=== PATIENT | male | born 1945 | race Caucasian/White ===

== ENCOUNTER 2016-10-18 15:23 | Emergency (ER) | payer OTHER ==
[2016-10-18 15:28] VITALS: BMI 28.9
[2016-10-18] MEDS ORDERED: ONDANSETRON 4 MG/2 ML VIAL IVPUSH ONE (20:24)
[2016-10-18] MEDS ORDERED: SODIUM CHLORIDE 1,000 ML IV STA (20:24)
[2016-10-18] MEDS ORDERED: morphine CARPU-JECT 4 MG/1 ML DISP.SYRIN IVPUSH ONE (20:25)
--- NOTE | 2016-10-18 20:43 | PDOC ---
History of Present Illness - General Chief Complaint: Pain Stated Complaint: ABD PAIN/NEAR SYNCOPE Time Seen by Provider: 10/18/16 19:57 History Source: Patient Exam Limitations: No Limitations - History of Present Illness Travel History: No Initial Comments: 10/18/16 20:38 71yo Male patient w/ PmHx: HTN, HLD, Cataracts presents to ED c/o abdominal pain that began at 230pm with blurred vision. Patient states blurred vision has resolved and abdominal pain has decreased in intensity but still remains 5/10 down from 1010. Denies n/v/d, fever, back pain, change or decrease in appetite , CP, diff breathing, hematuria, rectal bleeding or any other complaints at this time. Last BM: 2 hours ago and normal. Denies any other complaints. Timing/Duration: reports: constant, changing over time Quality: reports: moderate Abdominal Pain Onset Location: reports: LLQ, periumbilical Pain Radiation: reports: no radiation Activities at Onset: denies: none, exertion, emotional upset, rest, sleep, no specific activity, eating, working, sexual intercourse, other Treatment Prior to Arrive: worse with: analgesics, antacids, cold pack, heat, laxative, enema, other Aggravating Factors: worse with: None, Defecation, Eating, Emotional upset, Exertion, [place], Movement, Voiding, Change in position Alleviating Factors: worse with: None, Belching, Shallow Breathing, Defecation, Eating, Holding Breath, Passing Gas, Change in Position, Rest, Voiding, Vomiting Past History - Travel Traveled outside of the country in the last 30 days: No Close contact w/someone who was outside of country & ill: No - Past Medical History Allergies/Adverse Reactions: Allergies Allergy/AdvReac Type Severity Reaction Status Date / Time Sulfa (Sulfonamide Allergy Intermediate Rash Verified 10/18/16 15:26 Antibiotics) [Sulfa(Sulfonamide Antibiotics)] ciprofloxacin [From Cipro] Allergy ITCHING Verified 10/18/16 15:26 RASH ciprofloxacin HCl Allergy ITCHING Verified 10/18/16 15:26 [From Cipro] RASH Home Medications: Ambulatory Orders Aspirin Coated [Ecotrin -] 81 mg PO DAILY 12/05/12 Metoprolol Succinate [Toprol XL -] 50 mg PO HS 12/05/12 Atorvastatin Ca [Lipitor] 80 mg PO HS 01/03/14 Amlodipine Besylate 7.5 mg PO DAILY 10/18/16 Anemia: No Asthma: No Cancer: No Cardiac Disorders: Yes (4 STENTS) CVA: No COPD: No CHF: No Dementia: No Diabetes: No GI Disorders: No Disorders: Yes (BPH) HTN: Yes Hypercholesterolemia: Yes Liver Disease: No Seizures: No Thyroid Disease: No - Surgical History Abdominal Surgery: Yes (HERNIA.) Appendectomy: Yes (AT 11 YRS OLD) Cardiac Surgery: Yes (STENTS X4) Cholecystectomy: No Lung Surgery: No Neurologic Surgery: No Orthopedic Surgery: Yes (RT FIBULA FX) - Immunization History Immunization Up to Date: Yes - Psycho/Social/Smoking Cessation Hx Anxiety: No Suicidal Ideation: No Smoking Status: No Smoking History: Never smoked Have you smoked in the past 12 months: No Number of Cigarettes Smoked Daily: 0 Information on smoking cessation initiated: No Hx Alcohol Use: No Drug/Substance Use Hx: No Substance Use Type: None Hx Substance Use Treatment: No Abd/GI Specific PMHX - Complaint Specific PMHX Colitis: No Diverticulitis: No Gall Bladder Disease: No GERD: No Hepatitis: No Irritable Bowel Synd (IBS): No Pancreatitis: No GI Ulcer Disease: No Review of Systems - Review of Systems Able to Perform ROS?: Yes Is the patient limited Jamaican proficient: No Constitutional: No: Chills, Fever HEENTM: Yes: Blurred Vision ABD/GI: Yes: Abdominal cramping. No: Abdominal Distended, Blood Streaked Bowels , Constipated, Diarrhea, Nausea, Poor Appetite, Poor Fluid Intake, Rectal Bleeding, Vomiting, Tarry Stools : No: Burning, Dysuria, Flank Pain, Hematuria, Testicular Pain Musculoskeletal: No: Back Pain Integumentary: No: Bruising, Erythema, Pruritus, Rash, Sweating Neurological: No: Headache, Seizure, Tingling, Tremors, Unsteady Gait, Ataxia, Dizziness Psychiatric: No: Depression All Other Systems: Reviewed and Negative *Physical Exam - Vital Signs Last Vital Signs Temp Pulse Resp BP Pulse Ox 98.3 F 76 18 156/71 100 10/18/16 15:27 10/18/16 15:27 10/18/16 15:27 10/18/16 15:27 10/18/16 15:27 - Physical Exam General Appearance: Yes: Nourished, Appropriately Dressed. No: Apparent Distress, Mild Distress, Moderate Distress, Severe Distress Respiratory/Chest: positive: Lungs Clear, Normal Breath Sounds. negative: Chest Tender, Respiratory Distress, Accessory Muscle Use, Labored Respiration, Rapid RR, Stridor, Wheezing Cardiovascular: positive: Regular Rhythm, Regular Rate Gastrointestinal/Abdominal: positive: Normal Bowel Sounds, Tender, Soft, Distended, Tenderness (LLQ). negative: Flat, Increased Bowel Sounds, Decreased BS, Guarding, Rebound Musculoskeletal: positive: Normal Inspection. negative: CVA Tenderness, Decreased Range of Motion, Vertebral Tenderness Extremity: positive: Normal Capillary Refill, Normal Inspection, Normal Range of Motion. negative: Pedal Edema, Swelling, Calf Tenderness, Erythema, Inflammation Integumentary: positive: Normal Color, Dry, Warm Neurologic: positive: bean viner II-XII NML intact, Fully Oriented, Alert, Normal Mood/ Affect, Normal Response, Motor Strength 07/02 ED Treatment Course - LABORATORY CBC & Chemistry Diagram: 10/18/16 21:00 10/18/16 21:00 - RADIOLOGY Radiology Studies Ordered: Category Date Time Status ABDOMEN & PELVIS CT WITH CONTR [CT] Stat CT Scan 10/18/16 20:25 Ordered *DC/Admit/Observation/Transfer Diagnosis at time of Disposition: Gastroenteritis - Discharge Dispostion Disposition: HOME Condition at time of disposition: Improved Admit: No - Patient Instructions Printed Discharge Instructions: DI for Viral Gastroenteritis -- Adult Additional Instructions: FOLLOW UP WITH YOUR GI SPECIALIST THIS WEEK FOR FURTHER EVALUATION. RETURN IF SYMPTOMS WORSEN OR ANY CONCERNS FOR FURTHER EVALUATION. Print Language: BENINESE
[2016-10-18] MEDS ORDERED: ONDANSETRON 4 MG/2 ML VIAL ONE (20:57)
[2016-10-18] MEDS ORDERED: morphine CARPU-JECT 2 MG/1 ML DISP.SYRIN ONE (20:57)
[2016-10-18 21:12] LABS: BASOPHIL 0.4 % (0-2.0); EOSINOPHIL 0.7 % (0-4.5); MCH 31.5 pg (25.7-33.7); MCHC 33.9 g/dl (32.0-35.9); MEAN PLT VOLUME 7.7 fl (7.5-11.1); NEUTROPHILS 68.3 % (42.8-82.8); PLATELET COUNT 233 K/MM3 (134-434); RDW 13.2 % (11.9-15.9); WHITE BLOOD COUNT 6.3 K/mm3 (4.0-10.0)
[2016-10-18 21:20] LABS: URINE APPEARANCE SLCLOUDY; URINE BILIRUBIN NEGATIVE (NEGATIVE); URINE BLOOD NEGATIVE (NEGATIVE); URINE COLOR YELLOW; URINE GLUCOSE (UA) NEGATIVE (NEGATIVE); URINE KETONE 1+ (NEGATIVE); URINE LEUK ESTERASE NEGATIVE (NEGATIVE); URINE NITRITE NEGATIVE (NEGATIVE); URINE PROTEIN NEGATIVE (NEGATIVE); URINE UROBILINOGEN NEGATIVE mg/dL (0.2-1.0)
[2016-10-18 21:36] LABS: AMYLASE 65 U/L (25-115); ANION GAP 6 (8-16); BILIRUBIN,TOTAL 0.5 mg/dL (0.2-1.0); CALCIUM 9.1 mg/dL (8.5-10.1); CO2 30 mmol/L (21-32); CREATININE 0.8 mg/dL (0.7-1.3); GLUCOSE,RANDOM 84 mg/dL (74-106); SGOT/AST 20 U/L (15-37); SGPT/ALT 35 U/L (12-78); TOT PROT 7.4 g/dl (6.4-8.2)
[2016-10-18 21:37] LABS: ALK PHOS 66 U/L (45-117)
[2016-10-19 00:33] VITALS: BP 132/70; PULSE 74; TEMP 98
== END 2016-10-19 00:32 | disposition home or self-care (01) ==
LOC: JER 15:23
PROC: 3E033NZ Introduction of Analgesics, Hypnotics, Sedatives into Peripheral Vein, Percutaneous Approach (ICD-10-PCS; principal; 2016-10-18)
PROC: 3E033GC Introduction of Other Therapeutic Substance into Peripheral Vein, Percutaneous Approach (ICD-10-PCS; 2016-10-18)
DX: K52.9 Noninfective gastroenteritis and colitis, unspecified (principal); I25.10 Atherosclerotic heart disease of native coronary artery without angina pectoris; I10 Essential (primary) hypertension; Z95.5 Presence of coronary angioplasty implant and graft; E78.00 Pure hypercholesterolemia, unspecified; N40.0 Benign prostatic hyperplasia without lower urinary tract symptoms
CPT/HCPCS: 36415; 74177-TC; 80053; 81003; 82150; 83690; 85025; 96374; 96375; 99283-25

== ENCOUNTER 2016-10-24 11:31 | Emergency (ER) | payer OTHER ==
[2016-10-24 11:39] VITALS: TEMP 98.3; BMI 28.2
--- NOTE | 2016-10-24 11:59 | PDOC ---
History of Present Illness <Tucker Roper - Last Filed: 10/24/16 16:44> - General History Source: Patient Exam Limitations: No Limitations - History of Present Illness Initial Comments: 10/24/16 12:20 The patient is a 71 year old male, with a significant past medical history of hypertension, hyperlipidemia and cataracts who presents to the emergency department complaining of intermittent diffuse abdominal pain, headache and lightheadedness beginning this morning. The patient describes the abdominal pain as "subtle" and made worse with movement. He reports associated symptoms of diaphoresis. The patient states he was recently admitted to the ED on Tuesday , October 18, 2016 for stomach pain and reports that the ct scan detected a hiatal hernia. The patient states he followed up with his PCP on , October 21, 2016 and was prescribed Magnesium Citrate for constipation. The patient reports normal bowel movements. He denies any recent nausea, vomit, diarrhea or constipation. He denies any recent fever or chills. He denies any recent chest pain or shortness of breath. Allergies: Sulfa, Ciprofloxacin, Ciprofloxacin HCL Past surgical history: Appendectomy, Stents x4, Hernia, RT Fibula Fx Primary Care Physician: Dr. Glen Hill <Ralph Perez - Last Filed: 10/24/16 18:55> - General Chief Complaint: Pain Stated Complaint: ABD PAIN, HEADACHES Past History - Past Medical History Anemia: No Asthma: No Cancer: No Cardiac Disorders: Yes (4 STENTS) CVA: No COPD: No CHF: No Dementia: No Diabetes: No GI Disorders: No Disorders: Yes (BPH) HTN: Yes Hypercholesterolemia: Yes Liver Disease: No Seizures: No Thyroid Disease: No - Surgical History Abdominal Surgery: Yes (HERNIA.) Appendectomy: Yes (AT 11 YRS OLD) Cardiac Surgery: Yes (STENTS X4) Cholecystectomy: No Lung Surgery: No Neurologic Surgery: No Orthopedic Surgery: Yes (RT FIBULA FX) - Immunization History Immunization Up to Date: Yes - Psycho/Social/Smoking Cessation Hx Anxiety: No Suicidal Ideation: No Smoking Status: No Smoking History: Never smoked Have you smoked in the past 12 months: No Number of Cigarettes Smoked Daily: 0 Hx Alcohol Use: Yes (SOCIAL) Drug/Substance Use Hx: No Substance Use Type: None Hx Substance Use Treatment: No <Tucker Roper - Last Filed: 10/24/16 16:44> <Ralph Perez - Last Filed: 10/24/16 18:55> - Past Medical History Allergies/Adverse Reactions: Allergies Allergy/AdvReac Type Severity Reaction Status Date / Time Sulfa (Sulfonamide Allergy Intermediate Rash Verified 10/24/16 11:39 Antibiotics) [Sulfa(Sulfonamide Antibiotics)] ciprofloxacin [From Cipro] Allergy ITCHING Verified 10/24/16 11:39 RASH ciprofloxacin HCl Allergy ITCHING Verified 10/24/16 11:39 [From Cipro] RASH Home Medications: Ambulatory Orders Aspirin Coated [Ecotrin -] 81 mg PO DAILY 12/05/12 Metoprolol Succinate [Toprol XL -] 50 mg PO HS 12/05/12 Atorvastatin Ca [Lipitor] 40 mg PO HS 01/03/14 Amlodipine Besylate 7.5 mg PO DAILY 10/18/16 Review of Systems - Review of Systems Comments:: 10/24/16 12:29 GENERAL/CONSTITUTIONAL: No fever or chills. No weakness. HEAD, EYES, EARS, NOSE AND THROAT: No change in vision. No ear pain or discharge. No sore throat. CARDIOVASCULAR: No chest pain or shortness of breath. RESPIRATORY: No cough, wheezing, or hemoptysis. GASTROINTESTINAL: +Diffuse abdominal pain. No nausea, vomiting, diarrhea or constipation. GENITOURINARY: No dysuria, frequency, or change in urination. MUSCULOSKELETAL: No joint or muscle swelling or pain. No neck or back pain. SKIN: No rash NEUROLOGIC: +Headache. +Lightheadedness. No loss of consciousness, or change in strength/sensation. ENDOCRINE: No increased thirst. No abnormal weight change. HEMATOLOGIC/LYMPHATIC: No anemia, easy bleeding, or history of blood clots. ALLERGIC/IMMUNOLOGIC: No hives or skin allergy. <Ralph Perez - Last Filed: 10/24/16 18:55> *Physical Exam - Vital Signs Last Vital Signs Temp Pulse Resp BP Pulse Ox 98.3 F 61 20 149/84 98 10/24/16 11:36 10/24/16 11:36 10/24/16 11:36 10/24/16 11:36 10/24/16 11:36 <Tucker Roper - Last Filed: 10/24/16 16:44> - Vital Signs Last Vital Signs Temp Pulse Resp BP Pulse Ox 98.3 F 61 20 149/84 98 10/24/16 11:36 10/24/16 11:36 10/24/16 11:36 10/24/16 11:36 10/24/16 11:36 - Physical Exam Comments: 10/24/16 12:32 GENERAL: Awake, alert, and fully oriented, in no acute distress HEAD: No signs of trauma EYES: PERRLA, EOMI, sclera anicteric, conjunctiva clear ENT: Auricles normal inspection, hearing grossly normal, nares patent, oropharynx clear without exudates. Moist mucosa NECK: Normal ROM, supple, no lymphadenopathy, JVD, or masses LUNGS: Breath sounds equal, clear to auscultation bilaterally. No wheezes, and no crackles HEART: Regular rate and rhythm, normal S1 and S2, no murmurs, rubs or gallops ABDOMEN: Soft, nontender, normoactive bowel sounds. No guarding, no rebound. No masses EXTREMITIES: Normal range of motion, no edema. No clubbing or cyanosis. No cords, erythema, or tenderness NEUROLOGICAL: Cranial nerves II through XII grossly intact. Normal speech, normal gait SKIN: Warm, Dry, normal turgor, no rashes or lesions noted. <Ralph Perez - Last Filed: 10/24/16 18:55> Heart Score/ECG Review #1 10/24/16 18:53 Sinus bradycardia Otherwise normal ECG Vent rate 58 bpm NE interval 196 ms QRS duration 114 ms QT/QTc 426/418 ms P-R-T axes 35 -12 2 <Ralph Perez - Last Filed: 10/24/16 18:55> ED Treatment Course - LABORATORY CBC & Chemistry Diagram: 10/24/16 12:28 10/24/16 12:28 <Tucker Roper - Last Filed: 10/24/16 16:44> - LABORATORY CBC & Chemistry Diagram: 10/24/16 12:28 10/24/16 12:28 - RADIOLOGY Radiograph Interpretation: 10/24/16 13:31 EXAM#: TYPE/EXAM: RESULT: [id number] RAD/ABDOMEN FLAT UPRIGHT Abdomen: Pain. Imaging reveals degenerative changes, clear lung bases, prominent heart and retained stool. There is no sign of an obstructive process. Pneumatosis is not seen. There is no sign of organomegaly or calcifications of significance. There is urine filled bladder. There are some inguinal vascular calcifications. There are prominent soft tissues. Impression: No acute pathology. If symptoms persist, further imaging may be of help. Please note a CT scan performed on 10/18/2016 showed diverticulosis but no sign of diverticulitis. Reported By: Mahendra Biswas MD 10/24/16 1327 10/24/16 13:35 EXAM#: TYPE/EXAM: RESULT: [id number] RAD/CHEST PA LAT Chest: Abdominal pain Imaging reveals scoliosis with degenerative changes and wedging, normal heart, sclerotic knob and normal aaron. The lungs are clear. The angles are sharp and the soft tissues are intact. An acute process is not seen. Since the prior study of 02/23/2017, the basilar atelectatic changes have resolved. Impression : No acute pathology. Scoliosis. Improvement since prior study. Reported By: Mahendra Biswas MD 10/24/16 1325 <Ralph Perez - Last Filed: 10/24/16 18:55> *DC/Admit/Observation/Transfer - Discharge Dispostion Admit: No - Attestations Physician Attestion: 10/24/16 11:59 I, Dr. Tucker Roper, attest that this document has been prepared under my direction and personally reviewed by me in its entirety. I further attest, that it accurately reflects all work, treatment, procedures and medical decision -making performed by me. <Tucker Roper - Last Filed: 10/24/16 16:44> - Attestations Scribe Attestion: 10/24/16 12:33 Documentation prepared by Ralph Perez, acting as medical assistant dermatology for Tucker Roper DO. <Ralph Perez - Last Filed: 10/24/16 18:55> Diagnosis at time of Disposition: Abdominal pain Qualifiers: Abdominal location: generalized Qualified Code(s): R10.84 - Generalized abdominal pain - Discharge Dispostion Disposition: HOME Condition at time of disposition: Good - Referrals Referrals: Glen Hill MD [Primary Care Provider] - - Patient Instructions Printed Discharge Instructions: DI for Abdominal Pain-Adult Additional Instructions: Mr Montgomery- SOrry this is so bothersome. Try some GasX (simethicone). Return to us if worse or new symptoms, follow up with your doctor later this week. Best- Dr. Tucker Roper
[2016-10-24] MEDS ORDERED: SODIUM CHLORIDE 1,000 ML IV STA (12:07)
[2016-10-24 12:33] LABS: BASOPHIL 0.6 % (0-2.0); EOSINOPHIL 0.8 % (0-4.5); MCH 31.3 pg (25.7-33.7); MEAN PLT VOLUME 7.4 fl (7.5-11.1); NEUTROPHILS 69.6 % (42.8-82.8); PLATELET COUNT 214 K/MM3 (134-434); RDW 13.2 % (11.9-15.9)
[2016-10-24 12:59] LABS: ALBUMIN 2.5 g/dl (3.4-5.0); ANION GAP 14 (8-16); BILIRUBIN,TOTAL 0.8 mg/dL (0.2-1.0); CALCIUM 7.2 mg/dL (8.5-10.1); CO2 25 mmol/L (21-32); SGOT/AST 16 U/L (15-37); SGPT/ALT 28 U/L (12-78); TOT PROT 7.5 g/dl (6.4-8.2)
[2016-10-24 13:01] LABS: ALK PHOS 73 U/L (45-117); CPK 123 IU/L (39-308); TROPONIN I < 0.02 ng/ml (0.00-0.05)
[2016-10-24 13:23] LABS: GLUCOSE,RANDOM 90 mg/dL (74-106)
[2016-10-24 15:46] LABS: INR 1.05 (0.82-1.09); PROTHROMBIN TIME (PATIENT) 11.6 SEC (9.98-11.88)
[2016-10-24 16:10] VITALS: BP 159/73; PULSE 59
--- NOTE | 2016-10-24 19:31 | EKG ---
Test Reason : Blood Pressure : / mmHG Vent. Rate : 058 BPM Atrial Rate : 058 BPM P-R Int : 196 ms QRS Dur : 114 ms QT Int : 426 ms P-R-T Axes : 035 -12 002 degrees QTc Int : 418 ms SINUS BRADYCARDIA NON-SPECIFIC INTRA-VENTRICULAR CONDUCTION DELAY WHEN COMPARED WITH ECG OF 03-JAN-2014 20:10, PREMATURE ATRIAL COMPLEXES ARE NO LONGER PRESENT Confirmed by AGGIE HONG, ANA LILIA ([id number]) on 10/24/2016 7:30:47 PM Referred By: Confirmed By:ANA LILIA MARCIAL MD
== END 2016-10-24 16:56 | disposition home or self-care (01) ==
LOC: JER 11:31
PROC: 3E0337Z Introduction of Electrolytic and Water Balance Substance into Peripheral Vein, Percutaneous Approach (ICD-10-PCS; principal; 2016-10-24)
DX: R10.84 Generalized abdominal pain (principal); I10 Essential (primary) hypertension; E78.00 Pure hypercholesterolemia, unspecified; K44.9 Diaphragmatic hernia without obstruction or gangrene
CPT/HCPCS: 36415; 71020-TC; 74020-TC; 80053; 83690; 84484; 85025; 85610; 93005; 93010; 96360; 99285-25

== ENCOUNTER 2017-03-10 13:16 | Emergency (ER) | payer OTHER ==
[2017-03-10 13:31] VITALS: BMI 29.5
[2017-03-10 19:49] LABS: URINE APPEARANCE TURBID; URINE BILIRUBIN NEGATIVE (NEGATIVE); URINE BLOOD 3+ (NEGATIVE); URINE GLUCOSE (UA) 1+ (NEGATIVE); URINE KETONE NEGATIVE (NEGATIVE); URINE LEUK ESTERASE NEGATIVE (NEGATIVE); URINE NITRITE POSITIVE (NEGATIVE); URINE UROBILINOGEN NEGATIVE mg/dL (0.2-1.0)
[2017-03-10 19:50] LABS: URINE PROTEIN 2+ (NEGATIVE)
[2017-03-10 19:51] LABS: URINE COLOR RED
[2017-03-10 19:54] VITALS: BP 137/70; PULSE 63; TEMP 98.2
--- NOTE | 2017-03-10 19:56 | PDOC ---
Attending Attestation - Resident Resident Name: Ed Astudillo - ED Attending Attestation I have performed the following: I have examined & evaluated the patient, The case was reviewed & discussed with the resident, I agree w/resident's findings & plan, Exceptions are as noted - Physicial Exam PE: 03/10/17 20:10 Physical Exam General Appearance: Yes: Appropriately Dressed. No: Apparent Distress, Intoxicated HEENT: positive: EOMI, DANAE, Normal ENT Inspection, Normal Voice, TMs Normal, Pharynx Normal. negative: Pale Conjunctivae, Photophobia, Scleral Icterus (R), Scleral Icterus (L) Neck: positive: Trachea midline, Normal Thyroid, Supple. negative: Tender, Rigid, Carotid bruit, Stridor, Lymphadenopathy (R), Lymphadenopathy (L), Thyromegaly Respiratory/Chest: positive: Lungs Clear, Normal Breath Sounds. negative: Chest Tender, Respiratory Distress, Accessory Muscle Use, Labored Respiration, RES, Crackles, Rales, Rhonchi, Stridor, Wheezing, Dullness Cardiovascular: positive: Regular Rhythm, Regular Rate, S1, S2. negative: Edema , JVD, Murmur, Bradycardia, Tachycardia Vascular Pulses: Dorsalis-Pedis (R): 2+, Doralis-Pedis (L): 2+ Gastrointestinal/Abdominal: positive: Normal Bowel Sounds, Flat, Soft. negative : Tender, Organomegaly, Pulsatile Mass, Increased Bowel Sounds, Decreased BS, Distended, Guarding, Rebound, Hernia, Hepatomegaly, Spleenomegaly Lymphatic: negative: Adenopathy, Tenderness Musculoskeletal: positive: Normal Inspection. negative: CVA Tenderness, Decreased Range of Motion Extremity: positive: Normal Capillary Refill, Normal Inspection, Normal Range of Motion, Pelvis Stable. negative: Tender, Pedal Edema, Swelling, Erythema Integumentary: positive: Normal Color, Dry, Warm. 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 negative: EOM Palsy, Facial Droop, Sensory Deficit - Medical Decision Making 03/10/17 20:06 Pt treated and released. <Eduardo Goodwin - Last Filed: 03/10/17 20:10> - HPI HPI: 03/10/17 20:01 The patient is a 72 year old male with a significant PMH of CAD s/p stents and prostate bleeds into urethra s/p 2 surgeries (2009, 2013) who presents to the emergency department with bloody discharge from penis beginning earlier this afternoon. The patient denies dysuria or change in urinary frequency. He also reports epigastric abdominal pain which he has been seeing his PCP for. Allergies: Sulfonamide antibiotics, Ciprofloxacin, Ciprofloxacin HCl Urologist: Dr. Roy <Jorge L Dalal - Last Filed: 03/10/17 20:16>
[2017-03-10] MEDS ORDERED: DOXYCYCLINE HYCLATE 100 MG CAPSULE PO ONE ×2 (19:59→20:08)
--- NOTE | 2017-03-10 20:00 | PDOC ---
History of Present Illness - General Chief Complaint: Rectal Bleed Stated Complaint: RECTAL BLEED Time Seen by Provider: 03/10/17 19:13 History Source: Patient Exam Limitations: No Limitations - History of Present Illness Initial Comments: 03/10/17 19:48 Patient is a 72M with history of prostate surgery to relieve bleeding in 2009 and 2013, HTN, CAD s/p 4 stents in 2008, here today complaining of bloody discharge to the penis since 1pm today. Patient denies pain with urination, lower abdominal pain and flank pain. He denies nausea, vomiting, fevers and chills. Denies chest pain, shortness of breath, weakness, and dizziness. Does not take any blood thinners. No history of bleeding disorders. ALL: Sulfas and cipro Past History - Past Medical History Allergies/Adverse Reactions: Allergies Allergy/AdvReac Type Severity Reaction Status Date / Time Sulfa (Sulfonamide Allergy Intermediate Rash Verified 03/10/17 13:31 Antibiotics) [Sulfa(Sulfonamide Antibiotics)] ciprofloxacin [From Cipro] Allergy ITCHING Verified 03/10/17 13:31 RASH ciprofloxacin HCl Allergy ITCHING Verified 03/10/17 13:31 [From Cipro] RASH Home Medications: Ambulatory Orders Aspirin Coated [Ecotrin -] 81 mg PO DAILY 12/05/12 Metoprolol Succinate [Toprol XL -] 50 mg PO HS 12/05/12 Atorvastatin Ca [Lipitor] 40 mg PO HS 01/03/14 Amlodipine Besylate 7.5 mg PO DAILY 10/18/16 Bromfenac Sodium [Prolensa] 3 ml OP DAILY 01/03/17 Difluprednate [Durezol] 5 ml OP DAILY 01/03/17 Doxycycline Hyclate 100 mg PO BID #20 tablet 03/10/17 Anemia: No Asthma: No Cancer: No Cardiac Disorders: Yes (4 STENTS) CVA: No COPD: No CHF: No DVT: No Dementia: No Diabetes: No GI Disorders: No Disorders: Yes (BPH) HTN: Yes Hypercholesterolemia: Yes Liver Disease: No Seizures: No Thyroid Disease: No - Surgical History Abdominal Surgery: Yes (HERNIA.) Appendectomy: Yes (AT 11 YRS OLD) Cardiac Surgery: Yes (STENTS X4) Cholecystectomy: No Lung Surgery: No Neurologic Surgery: No Orthopedic Surgery: Yes (RT FIBULA FX) - Immunization History Immunization Up to Date: Yes - Suicide/Smoking/Psychosocial Hx Smoking Status: No Smoking History: Never smoked Have you smoked in the past 12 months: No Number of Cigarettes Smoked Daily: 0 Information on smoking cessation initiated: No Hx Alcohol Use: No Drug/Substance Use Hx: No Substance Use Type: None Hx Substance Use Treatment: No Review of Systems - Review of Systems Comments:: 03/10/17 19:50 GENERAL/CONSTITUTIONAL: No fever or chills. No weakness. HEAD, EYES, EARS, NOSE AND THROAT: No change in vision. No sore throat. CARDIOVASCULAR: No chest pain or shortness of breath RESPIRATORY: No cough, wheezing, or hemoptysis. GASTROINTESTINAL: No nausea, vomiting, diarrhea or constipation. GENITOURINARY: No dysuria, frequency. Positive for blood in urine. MUSCULOSKELETAL: No joint or muscle swelling or pain. No neck or back pain. SKIN: No rash NEUROLOGIC: No headache, vertigo, loss of consciousness, or change in strength/ sensation. HEMATOLOGIC/LYMPHATIC: No anemia, easy bleeding, or history of blood clots. ALLERGIC/IMMUNOLOGIC: No hives or skin allergy. *Physical Exam - Vital Signs Last Vital Signs Temp Pulse Resp BP Pulse Ox 98.8 F 68 18 141/74 98 03/10/17 13:29 03/10/17 13:29 03/10/17 13:29 03/10/17 13:29 03/10/17 13:29 - Physical Exam Comments: 03/10/17 20:00 GENERAL: Awake, alert, and fully oriented, in no acute distress : Dried blood around the meatus, no active discharge, uncircumcised penis, nontender, normal testicular lie HEAD: No signs of trauma, normocephalic, atraumatic EYES: PERRLA, EOMI, sclera anicteric, conjunctiva clear ENT: Auricles normal inspection, hearing grossly normal, nares patent, oropharynx clear without exudates. Moist mucosa LUNGS: No distress, speaks full sentences, clear to auscultation bilaterally HEART: Regular rate and rhythm, normal S1 and S2, no murmurs, rubs or gallops, peripheral pulses normal and equal bilaterally. ABDOMEN: Soft, nontender, normoactive bowel sounds. No guarding, no rebound. No masses EXTREMITIES: Normal inspection, Normal range of motion, no edema. No clubbing or cyanosis. NEUROLOGICAL: Cranial nerves II through XII grossly intact. Normal speech, normal gait, no focal sensorimotor deficits SKIN: Warm, Dry, normal turgor, no rashes or lesions noted. Medical Decision Making - Medical Decision Making 03/10/17 20:01 72M with history of prostate surgery for bleeding from prostate in 2009, 2013, CAD s/p stenting in 2008, HLD, HTN here today with bleeding from penis. Vital signs normal and stable. Patient appears well. No active bleeding from the penis. Has urology follow up already in Dr Roy. Will do UA/UC and refer patient to his own urologist. UA is nitrite positive with 3+ blood. Will give doxycycline due to patient's allergies and discharge with outpatient prescription for 10 days. *DC/Admit/Observation/Transfer Diagnosis at time of Disposition: Hematuria, UTI (lower urinary tract infection) - Discharge Dispostion Disposition: HOME Condition at time of disposition: Good Admit: No - Referrals Referrals: Glen Hill MD [Primary Care Provider] - Ed Roy MD [Staff Physician] - - Patient Instructions Printed Discharge Instructions: DI for Hematuria, DI for Urinary Tract Infection (UTI) Additional Instructions: Please call Dr Roy tomorrow to schedule follow up. Please return if you have any new, worsening or concerning symptoms. You were prescribed an antibiotic today and it was sent to your pharmacy. Please pick it up from the pharmacy and complete the prescription. You were given your first dose in the ED , take your second dose starting tomorrow morning. - Post Discharge Activity
== END 2017-03-10 20:16 | disposition home or self-care (01) ==
LOC: JER 13:16
DX: N39.0 Urinary tract infection, site not specified (principal); R31.9 Hematuria, unspecified; I25.10 Atherosclerotic heart disease of native coronary artery without angina pectoris; I10 Essential (primary) hypertension; Z95.5 Presence of coronary angioplasty implant and graft; E78.5 Hyperlipidemia, unspecified; N40.0 Benign prostatic hyperplasia without lower urinary tract symptoms
CPT/HCPCS: 81003; 81015; 87086; 99281-25

== ENCOUNTER 2017-12-30 07:38 | Day surgery (SDC) | payer OTHER ==
[2017-12-29 09:18] VITALS: BMI 27.5
[~2017-12-30 07:38] MED LIST: ceFAZolin SODIUM 1 GM VIAL IVPB ONE
[2017-12-30] MEDS ORDERED: BUPIVACAINE HCL/PF 0.5% (5MG/ML) 10 ML VIAL ONE (09:24)
--- NOTE | 2017-12-30 09:38 | HP ---
History & Physical Update - History History: No Change - Physical Physical: No Change - Assessment Assessment: No Change - Plan Plan: No Change (Laparoscopic repair of ventral and umbilical hernia with mesh , possible open. Consent obtained. Procedure exlained with risks, benefits and complications.)
--- NOTE | 2017-12-30 09:53 | HP ---
Satellite [facility] - Chief Complaint Chief Complaint: Bulge on anterior abdominal wall, now for the last year is having pain, History Source: Patient Limitations to Obtaining History: No Limitations - Past Medical History Allergies/Adverse Reactions: Allergies Allergy/AdvReac Type Severity Reaction Status Date / Time Sulfa (Sulfonamide Allergy Intermediate Rash Verified 12/30/17 08:11 Antibiotics) [Sulfa(Sulfonamide Antibiotics)] ciprofloxacin [From Cipro] Allergy ITCHING Verified 12/30/17 08:11 RASH ciprofloxacin HCl Allergy ITCHING Verified 12/30/17 08:11 [From Cipro] RASH Gastrointestinal: Yes: Other (He has a large bulge in his epigastrium and around the umbilicus, which is partially reducible.. Ventral and umbilical herniae.) - Current Medications Current Medications: Home Medications Medication Instructions Recorded Aspirin Coated [Ecotrin -] 81 mg PO DAILY 12/05/12 Amlodipine Besylate 10 mg PO HS 10/18/16 Bromfenac Sodium [Prolensa] 3 ml OU DAILY 10/20/17 Finasteride [Proscar -] 5 mg PO HS 10/20/17 Omeprazole 40 mg PO PRN 10/20/17 Atorvastatin Ca [Lipitor] 20 mg PO HS 12/29/17 Metoprolol Succinate 100 mg PO DAILY 12/29/17 [place]-3/Dha/Epa/Fish Oil [[place] 3 1 each PO DAILY 12/30/17 500 Softgel] Satellite Physical Exam - Physical Examination Vital Signs: Vital Signs Period Temp Pulse Resp BP Sys/Hdz Pulse Ox Last 24 Hr 97.4 F 52 20 136/62 97 Abdomen: Other (He has a large bulge in his epigastrium and around the umbilicus , which is partially reducible.. Ventral and umbilical herniae.) Satellite Impression/Plan - Impression/Plan Impression: Ventral and umbilical hernia. Hypertension,. GERD, Hyperlipidemia. Plan Laparoscopic repair of abdominal hernia with mesh. Operative Procedure: Lapatroscopic repair of abdominal hernia with mesh , possible open. Date to be Performed: 12/30/17
[2017-12-30] MEDS ORDERED: ceFAZolin SODIUM 1 GM VIAL IVPB ONE (10:03)
[2017-12-30] MEDS ORDERED: ONDANSETRON 4 MG/2 ML VIAL IVPUSH PRN (11:18)
[2017-12-30] MEDS ORDERED: LACTATED RINGERS SOLUTION 1,000 ML IV SCH (11:30)
[2017-12-30] MEDS ORDERED: BUPIVACAINE HCL/PF 0.5% (5MG/ML) 10 ML VIAL IJ ONE ×2 (11:42)
--- NOTE | 2017-12-30 11:57 | OP ---
Operative Note - Note: Operative Date: 12/30/17 Pre-Operative Diagnosis: Ventral and umbilical hernia. Operation: Laparoscopic assisted repair of ventral and umbilical hernia with mesh . Findings: Ventral ( epigastric ) and umbilical hernia with preperitoneal fat within the hernia, which was reduced, and excised. Implants: 15 cm. x 25 cm size mesh used. Surgeon: Rebekah Marquez Laserist: Freya Trejo Anesthesiologist/PLAN EXAMINER: Sj Prescott Anesthesia: General Specimens Removed: Herniated preperitoeal fat from 1) umbilical hernia and 2) from ventral hernia Estimated Blood Loss (mls): 5 Operative Report Dictated: Yes
[2017-12-30] MEDS: ACETAMINOPHEN 1000 MG/100 ML VIAL (NON FORMULARY) IVPB ONE ×2 (12:20→18:03)
--- NOTE | 2017-12-30 12:39 | SURG ---
Surgery Legal Financial Specialist Note Legal Financial Specialist: Freya Trejo PA-C (Suzy) Date of Service: 12/30/17 Diagnosis: Ventral ( epigastric ) and umbilical hernia with preperitoneal fat within the hernia Procedure: Laparoscopic assisted repair of ventral and umbilical hernia with mesh I was present for the entirety of the operative procedure. For further detail, please refer to operative report. Visit type - Case Type Case Type: Scheduled - Emergency Emergency Visit: No - New patient This patient is new to me today: Yes Date on this admission: 12/30/17 - Critical Care Critical Care patient: No
[2017-12-30] MEDS ORDERED: ONDANSETRON 4 MG/2 ML VIAL ONE (13:50)
[2017-12-30] MEDS ORDERED: IBUPROFEN 800 MG/8 ML IJ IVPB ONE (15:04)
[2017-12-30] MEDS: IBUPROFEN 800 MG/8 ML IJ IVPB ONE ×2 (15:05→18:04)
[2017-12-30] MEDS ORDERED: HYDROmorphone HCl 2 MG/ML VIAL IVPUSH PRN (15:58)
[2017-12-30] MEDS ORDERED: HYDROmorphone HCl 2 MG/ML VIAL ONE (16:21)
[2017-12-30] MEDS: oxyCODONE HCL 5 MG TABLET PO PRN (21:51)
[2017-12-31] MEDS: oxyCODONE HCL 5 MG TABLET PO PRN ×2 (01:47→09:02)
[2017-12-31 06:06] VITALS: BP 152/70; PULSE 72; TEMP 98.5
--- NOTE | 2017-12-31 08:39 | OP ---
DATE OF OPERATION: 12/30/2017 PREOPERATIVE DIAGNOSIS: Ventral (epigastric) and umbilical hernia. POSTOPERATIVE DIAGNOSIS: Ventral (epigastric) and umbilical hernia with herniation of preperitoneal fat within both the hernias. OPERATIVE PROCEDURE: Laparoscopic-assisted repair of ventral and umbilical hernia with mesh. SURGEON: Sen Marquez MD MACHINE WELT BUTTER: ANT [place] ANESTHESIA: General anesthesia. OPERATIVE DESCRIPTION: This 72-year-old man had an epigastric and umbilical hernia which was causing pain for the last 2 years. Patient was brought in for repair of ventral and umbilical hernia laparoscopically, possible open. Consent was obtained. Risks, benefits, and complications had been discussed with the patient. Patient was given general anesthesia. The abdomen was painted and draped. An incision was made in the midline and subxiphoid area for about 10 mm in length. It was deepened through the skin and subcutaneous tissue through linea alba and the peritoneum. A 10-12-mm laparoscopic trocar of the Lusi Fernando type was introduced into the abdominal cavity. Under direct vision, two 5-mm trocars were inserted on each side of the abdomen, one in the upper quadrant and one in the lower quadrant lateral to the abdomen. This was noted entering the abdominal cavity under direct vision with the camera. The ventral hernia was then reduced into the abdominal cavity, which realized a large amount of fat there was within the hernia. This was reduced into the abdominal cavity and excised using the LigaSure. Once this was done, the hernial defect was easily identified. A similar procedure was done at the umbilicus as well. There was fat protruding through the umbilical hernia, which was reduced into the abdominal cavity and excised using the LigaSure. These were both sent as specimen to Pathology. Both the defects were then incorporated into 1 repair using a large 25 cm x 15 cm mesh. This was rolled in place, introduced through the subxiphoid port into the abdominal cavity. This was spread. The central inflatable device was brought out through the center of the coverage needed by making a small incision. When this catheter was brought out, the inflatable device was inflated thus pushing the mesh against the anterior abdominal wall on its undersurface. The tube was then carefully inflated, clamping the exiting tube. Once this was done, the mesh was anchored peripherally with the metallic tacker on both sides at least 3 cm beyond the palpable extent of the hernial defect above and below. In addition, another row of inner AbsorbaTack absorbable tackers were placed to anchor the mesh to the abdominal wall. At the completion, the mesh was adequately anchored to the abdominal wall with the tackers all around the abdomen. Once this was done, the inflatable device to hold the mesh to the anterior abdominal wall was deflated. This was divided at the umbilicus, and the inflatable device was pulled out of the abdominal cavity through the 10-mm port. All the pieces were removed except the mesh which was held in place. Hemostasis was satisfactory at the completion of the procedure. Sponge count and instrument count were correct. The linea alba in the midline and subxiphoid area was approximated with interrupted 2-0 Vicryl sutures. Skin was approximated with buried interrupted 4-0 Monocryl sutures. Sponge count and instrument count were correct. Patient was extubated and sent to the recovery room in satisfactory and stable condition. Louis DAVID/[id number] cc: Glen Hill MD MTDD
--- NOTE | 2018-01-02 15:41 | PATH ---
Surgical Pathology Report Patient Name: JOY PRAKASH [facility]. Rec. #: [id number] /Age/Gender: 1945 (Age: 72) / M Account: [id number] Location: AMBULATORY SURG Taken: 12/30/2017 Received: 12/30/2017 Reported: 01/02/2018 Physicians: Sen Marquez M.D. Specimen(s) Received A: INCARCERATED VENTRAL HERNIA B: UMBILICAL HERNIA Clinical History Incarcerated ventral hernia and umbilical hernia Final Diagnosis A. INCARCERATED VENTRAL HERNIA, REPAIR: BENIGN FIBROADIPOSE TISSUE. B. UMBILICAL HERNIA, REPAIR: MESOTHELIAL LINED FIBROADIPOSE TISSUE CONSISTENT WITH HERNIA SAC. Electronically Signed Aracelis Lane M.D. Gross Description A. Received in formalin, labeled "incarcerated ventral hernia" is a yellow fibroadipose tissue measuring 2.5 x 2.0 x 1.0 cm. Serial sectioning reveal yellow homogeneous tissue. Paper Sales Representative sections are submitted in one cassette. B. Received in formalin, labeled "umbilical hernia" are multiple portions of adipose tissue and fine fibrous tissue measuring 4.0 x 3.0 x 1.5 cm in aggregate. Paper Sales Representative sections are submitted in one cassette. MALACHI/12/30/2017 isai/12/30/2017
== END 2017-12-31 10:30 | disposition home or self-care (01) ==
LOC: JASUSAT 07:38 → JASU-SURG 07:38 → J8W 17:45 → JASUSAT 12-31 10:30
PROVIDERS: ATTEND Specialist
PROC: 0WUF4JZ Supplement Abdominal Wall with Synthetic Substitute, Percutaneous Endoscopic Approach (ICD-10-PCS; 2017-12-30)
PROC: 0WUF4JZ Supplement Abdominal Wall with Synthetic Substitute, Percutaneous Endoscopic Approach (ICD-10-PCS; principal; 2017-12-30 09:30)
DX: K43.9 Ventral hernia without obstruction or gangrene (principal); K42.9 Umbilical hernia without obstruction or gangrene
CPT/HCPCS: 88302-TC; 94760; J0131

== ENCOUNTER 2018-11-06 18:44 | Emergency (ER) | payer OTHER ==
[2018-11-06 18:58] VITALS: PULSE 68; TEMP 98.3; BMI 27.8
--- NOTE | 2018-11-06 18:59 | PDOC ---
Rapid Medical Evaluation Medical Evaluation: Allergies Allergy/AdvReac Type Severity Reaction Status Date / Time Sulfa (Sulfonamide Allergy Intermediate Rash Verified 12/30/17 08:11 Antibiotics) [Sulfa(Sulfonamide Antibiotics)] ciprofloxacin [From Cipro] Allergy ITCHING Verified 12/30/17 08:11 RASH ciprofloxacin HCl Allergy ITCHING Verified 12/30/17 08:11 [From Cipro] RASH I have performed a brief in-person evaluation of this patient. The patient presents with a chief complaint of:c/o elevated BP at home (215/105) ; takes 2 meds for BP (Metropolol and Losartan); took Metoprolol today; also c/ o lightheaded today along with lower abdominal pain; denies cp, vomiting, diarrhea, urinary complaints Pertinent physical exam findings: In NAD, abdomen soft, NT I have ordered the following: labs, ekg The patient will proceed to the ED for further evaluation. 11/06/18 18:56
--- NOTE | 2018-11-06 20:12 | PDOC ---
History of Present Illness <Sarah Ward - Last Filed: 11/07/18 01:51> - History of Present Illness Initial Comments: 11/06/18 19:52 73y/o M hx of CAD s/p stent placement (4 stents), ventral &umbilical hernia s/p lap.repair. HTN, GERD and HLD presents to the ED with elevated blood pressure and abdominal pain. He was eating today at antonio 6;30pm when he began to have lower abdominal pain and a sensation of lightheadedness. He took his BP at that time and it was 215/105. He reports seeing his rotary cutter feeder this morning and there were no concerns. He experienced concurrent diaphoresis as well. The pain in his abdomen felt like stabbing pain and lasted a few minutes. He denies any headache, blurry vision, LOC, head trauma,chest pain, SOB, back pain, weakness, loss of sensation, fevers or chills. He endorses improved but continued lightheadedness. 11/06/18 20:11 <Jenny Mariano - Last Filed: 11/07/18 03:18> - General Chief Complaint: Pain, Acute Stated Complaint: LIGHTHEADED/ABD/PAIN/POSSIBLE HYPERTENSION Time Seen by Provider: 11/06/18 18:56 Past History <Sarah Ward Patti - Last Filed: 11/07/18 01:51> - Past Medical History Anemia: No Asthma: No Cancer: No Cardiac Disorders: Yes (4 STENTS 2008) CVA: No COPD: No CHF: No DVT: No Dementia: No Diabetes: No GI Disorders: No Disorders: Yes (BPH) HTN: Yes Hypercholesterolemia: Yes Liver Disease: No Seizures: No Thyroid Disease: No - Surgical History Abdominal Surgery: Yes (HERNIA) Appendectomy: Yes (AT 11 YRS OLD) Cardiac Surgery: Yes (STENTS X4) Cholecystectomy: No Lung Surgery: No Neurologic Surgery: No Orthopedic Surgery: Yes (RT FIBULA FX 1994) - Immunization History Immunization Up to Date: Yes - Suicide/Smoking/Psychosocial Hx Smoking Status: No Smoking History: Never smoked Have you smoked in the past 12 months: No Number of Cigarettes Smoked Daily: 0 Hx Alcohol Use: No Drug/Substance Use Hx: No Substance Use Type: None Hx Substance Use Treatment: No <Jenny Mariano - Last Filed: 11/07/18 03:18> - Past Medical History Allergies/Adverse Reactions: Allergies Allergy/AdvReac Type Severity Reaction Status Date / Time Sulfa (Sulfonamide Allergy Intermediate Rash Verified 11/06/18 18:58 Antibiotics) [Sulfa(Sulfonamide Antibiotics)] ciprofloxacin [From Cipro] Allergy ITCHING Verified 11/06/18 18:58 RASH ciprofloxacin HCl Allergy ITCHING Verified 11/06/18 18:58 [From Cipro] RASH Home Medications: Ambulatory Orders Aspirin Coated [Ecotrin -] 81 mg PO DAILY 12/05/12 Amlodipine Besylate 10 mg PO HS 10/18/16 Bromfenac Sodium [Prolensa] 3 ml OU DAILY 10/20/17 Finasteride [Proscar -] 5 mg PO HS 10/20/17 Omeprazole 40 mg PO PRN 10/20/17 Atorvastatin Ca [Lipitor] 20 mg PO HS 12/29/17 Metoprolol Succinate 100 mg PO DAILY 12/29/17 Acetaminophen [Tylenol] 325 mg PO QID #30 capsule 12/30/17 [place]-3/Dha/Epa/Fish Oil [[place] 3 500 Softgel] 1 each PO DAILY 12/30/17 Oxycodone HCl/Acetaminophen [Percocet 5-325 mg Tablet] 1 tab PO Q6H #20 tablet MDD 3 12/30/17 Review of Systems - Review of Systems Constitutional: Yes: Diaphoresis HEENTM: No: Eye Pain, Blurred Vision Respiratory: No: Cough, Shortness of Breath Cardiac (ROS): No: Chest Pain ABD/GI: Yes: Symptoms Reported : No: Burning, Dysuria Musculoskeletal: No: Back Pain Integumentary: No: Bruising, Change in Color Neurological: Yes: Symptoms reported <Jenny Mariano - Last Filed: 11/07/18 03:18> *Physical Exam - Vital Signs Last Vital Signs Temp Pulse Resp BP Pulse Ox 98.3 F 68 16 175/79 H 98 11/06/18 18:55 11/06/18 18:55 11/06/18 18:55 11/07/18 01:49 11/06/18 18:55 <Sarah Ward - Last Filed: 11/07/18 01:51> - Vital Signs Last Vital Signs Temp Pulse Resp BP Pulse Ox 98.3 F 68 16 168/77 98 11/06/18 18:55 11/06/18 18:55 11/06/18 18:55 11/06/18 18:55 11/06/18 18:55 - Physical Exam General Appearance: Yes: Nourished, Appropriately Dressed. No: Apparent Distress HEENT: positive: EOMI, Normal Voice Neck: positive: Trachea midline, Other (lipoma on the right neck). negative: Tender Respiratory/Chest: positive: Lungs Clear, Decreased Breath Sounds, Other ( decreased breath sound left mid lung field compared to right). negative: Chest Tender, Respiratory Distress, Wheezing Cardiovascular: positive: Regular Rhythm, Regular Rate, S1, S2. negative: JVD Gastrointestinal/Abdominal: positive: Normal Bowel Sounds, Soft, Protuberent, Guarding (rlq and llq), Other (lipoma on the right side of lower abdomen. no cva tenderness) Musculoskeletal: positive: Normal Inspection. negative: CVA Tenderness, Decreased Range of Motion Extremity: positive: Normal Capillary Refill, Normal Inspection, Normal Range of Motion, Pedal Edema Integumentary: positive: Normal Color, Dry, Warm Neurologic: positive: ed educational aide II-XII NML intact, Fully Oriented, Alert, Normal Mood/ Affect, Normal Response, Motor Strength 5/5 <Jenny Mariano - Last Filed: 11/07/18 03:18> ED Treatment Course - LABORATORY CBC & Chemistry Diagram: 11/06/18 20:30 11/06/18 20:30 - ADDITIONAL ORDERS Additional order review: Laboratory Results 11/06/18 11/06/18 11/06/18 20:43 20:30 20:30 Sodium 143 Potassium 3.8 Chloride 110 H Carbon Dioxide 27 Anion Gap 7 L BUN 16.6 Creatinine 1.2 Est GFR (CKD-EPI)AfAm 68.63 Est GFR (CKD-EPI)NonAf 59.21 Random Glucose 102 Calcium 8.9 Total Bilirubin 0.2 AST 18 ALT 24 Alkaline Phosphatase 69 Creatine Kinase 147 Troponin I < 0.02 Total Protein 7.0 Albumin 3.8 Urine Color Yellow Urine Appearance Cloudy Urine pH 5.0 Ur Specific Suches 1.024 Urine Protein Negative Urine Glucose (UA) Negative Urine Ketones Negative Urine Blood Negative Urine Nitrite Negative Urine Bilirubin Negative Urine Urobilinogen 0.2 Ur Leukocyte Esterase Negative 11/06/18 20:30 RBC 4.03 MCV 92.8 MCHC 33.3 RDW 13.4 MPV 7.7 Neutrophils % 60.0 Lymphocytes % 28.3 D Monocytes % 9.2 Eosinophils % 2.0 D Basophils % 0.5 - Medications Given in the ED: ED Medications Discontinued Medications Generic Name Dose Route Start Last Admin Trade Name Lorena PRN Reason Stop Dose Admin Sodium Chloride 1,000 ml 11/06/18 21:14 11/06/18 22:20 Normal Saline - IV 11/06/18 21:15 1,000 ml ONCE ONE Administration <Sarah Ward - Last Filed: 11/07/18 01:51> - LABORATORY CBC & Chemistry Diagram: 11/06/18 20:30 11/06/18 20:30 <Jenny Mariano - Last Filed: 11/07/18 03:18> Medical Decision Making - Medical Decision Making 11/06/18 20:14 73y/o M hx of CAD s/p stent placement (4 stents), ventral &umbilical hernia s/p lap.repair. HTN, GERD and HLD presents to the ED with elevated blood pressure and abdominal pain. Labs/Imaging/Meds EKG: NSR, possible anterior infarct, age undetermined no ST elevations cbc, cmp , ua no significant findings Ct abdomen and pelvis with contrast Pt discharged home . no bowel obstruction or inflammation left sigmoid diverticulosis, no diverticulitis/colitis no free fluid/air left renal cyst. right renal cortical lesion indeterminate enlarged prostate liver cysts, spleen, pancreas , adrenal glands normal small hiatal hernia Pt. discharged, F/up with - <Jenny Mariano - Last Filed: 11/07/18 03:18> *DC/Admit/Observation/Transfer <EdSarahjavi Armstrong - Last Filed: 11/07/18 01:51> <Jenny Mariano - Last Filed: 11/07/18 03:18> Diagnosis at time of Disposition: Abdominal pain, acute High blood pressure Qualifiers: Hypertension type: essential hypertension Qualified Code(s): I10 - Essential ( primary) hypertension - Discharge Dispostion Condition at time of disposition: Good - Referrals Referrals: Glen Hill MD [Primary Care Provider] - - Patient Instructions Printed Discharge Instructions: DI for High Blood Pressure, DI for Abdominal Pain-Adult Additional Instructions: please follow up with your regular physician return for any worsening symptoms - Post Discharge Activity
--- NOTE | 2018-11-06 20:24 | PDOC ---
Attending Attestation - Resident Resident Name: Jenny Mariano - ED Attending Attestation I have performed the following: I have examined & evaluated the patient, The case was reviewed & discussed with the resident, I agree w/resident's findings & plan, Exceptions are as noted - HPI HPI: 11/06/18 20:18 73-year-old male presents to the emergency department because of a 30 minute episode of lower abdominal pain accompanied by lightheadedness and diaphoresis after he ate soup.He is currently asymptomatic. He is concerned about his high blood pressure, which he took after he was feeling pain and it was 215/105 at home. He did not take any further medication but took a cab to the emergency department and upon arrival, his blood pressure 168/77. - Physicial Exam PE: 11/06/18 20:31 well-developed 73-year-old male presents currently in no acute distress. Head is normocephalic, atraumatic. Neck no bruits no JVD. Lungs are clear to auscultation bilaterally CVS regular rate and rhythm S1, S2 Abdomen there is no rebound and no guarding on exam, normal bowel sounds heard , lipoma noted on rt side over rt hip extremities no edema skin multiple tuttle angiomas on skin, no erythema,warm and dry skin neuro axox3,motor strength 5/5 b/l - Medical Decision Making 11/06/18 20:34 73-year-old male came in by private vehicle for 30 minute episode of lower abdominal pain associated with lightheadedness and dizziness 11/06/18 21:07 ROS Denies any shortness of breath or chest pain or nausea or vomiting or diarrhea, fever or chills or cough. Past medical history significant for coronary artery disease, status post 4 stents in 2008. He actually saw his copy writer, Dr. El Gill earlier today and had an unremarkable EKG at that time. He does state that his systolic blood pressure was 200 in the copy writer's office, but he states that this sometimes happens when he sees the physician. Past surgical history also includes ventral hernia repair 11/07/18 01:12 CBC and chemistries are unremarkable UA is negative 11/07/18 01:38 CAT scan of the abdomen and pelvis with contrast. There is no bowel obstruction or inflammation. There is left sigmoid diverticulosis, no diverticulitis or colitis. No free fluid or free air. Left renal cyst. Right renal cortical lesion that may be cysts but is indeterminate. No acute renal abnormality. An enlarged prostate. Liver cysts. Normal spleen, normal pancreas, normal adrenal glands, intact osseous structures. small hiatal hernia 11/07/18 01:49 pt discharged home to follow up with Dr Hill
[2018-11-06 20:39] LABS: BASO % 0.5 % (0-2.0); HEMATOCRIT 37.4 % (35.4-49); HEMOGLOBIN 12.5 GM/dL (11.7-16.9); LYMPH % 28.3 % (8-40); MCH 30.9 pg (25.7-33.7); MCHC 33.3 g/dl (32.0-35.9); MEAN CELL VOLUME 92.8 fl (80-96); MEAN PLT VOLUME 7.7 fl (7.5-11.1); MONO % 9.2 % (3.8-10.2); PLATELET COUNT 190 K/MM3 (134-434); RBC 4.03 M/mm3 (4.00-5.60); RDW 13.4 % (11.9-15.9)
[2018-11-06 20:56] LABS: URINE APPEARANCE CLOUDY; URINE BILIRUBIN NEGATIVE (NEGATIVE); URINE COLOR YELLOW; URINE GLUCOSE (UA) NEGATIVE (NEGATIVE); URINE KETONE NEGATIVE (NEGATIVE); URINE LEUK ESTERASE NEGATIVE (NEGATIVE); URINE NITRITE NEGATIVE (NEGATIVE); URINE PROTEIN NEGATIVE (NEGATIVE); URINE UROBILINOGEN 0.2 mg/dL (0.2-1.0)
[2018-11-06 21:10] LABS: ALBUMIN 3.8 g/dl (3.4-5.0); BILIRUBIN,TOTAL 0.2 mg/dL (0.2-1); BLOOD UREA NITROGEN 16.6 mg/dL (7-18); CALCIUM 8.9 mg/dL (8.5-10.1); CREATININE 1.2 mg/dL (0.55-1.3); POTASSIUM 3.8 mmol/L (3.5-5.1)
[2018-11-06] MEDS ORDERED: SODIUM CHLORIDE 0.9% 500 ML INFUS.BAG IV ONE (21:14)
[2018-11-07] MEDS ORDERED: ATORVASTATIN CA 20 MG TABLET (FP) PO ONE (01:46)
[2018-11-07 01:49] VITALS: BP 175/79
[2018-11-07] MEDS ORDERED: LOSARTAN POTASSIUM 50 MG TABLET (FP) PO ONE (01:49)
[2018-11-07] MEDS ORDERED: ATORVASTATIN CA 20 MG TABLET (FP) ONE (01:51)
[2018-11-07] MEDS ORDERED: LOSARTAN POTASSIUM 50 MG TABLET (FP) ONE (01:51)
--- NOTE | 2018-11-07 10:50 | EKG ---
Test Reason : Blood Pressure : / mmHG Vent. Rate : 064 BPM Atrial Rate : 064 BPM P-R Int : 182 ms QRS Dur : 112 ms QT Int : 410 ms P-R-T Axes : 027 -11 010 degrees QTc Int : 422 ms NORMAL SINUS RHYTHM POSSIBLE ANTERIOR INFARCT , AGE UNDETERMINED ABNORMAL ECG WHEN COMPARED WITH ECG OF 24-OCT-2016 12:58, NO SIGNIFICANT CHANGE WAS FOUND Confirmed by Tyler Odonnell MD ([id number]) on 11/07/2018 10:50:24 AM Referred By: Confirmed By:Tyler Odonnell MD
== END 2018-11-07 02:21 | disposition home or self-care (01) ==
LOC: JER 18:44
PROC: 3E0337Z Introduction of Electrolytic and Water Balance Substance into Peripheral Vein, Percutaneous Approach (ICD-10-PCS; principal; 2018-11-06)
DX: R10.9 Unspecified abdominal pain (principal); I10 Essential (primary) hypertension; E78.00 Pure hypercholesterolemia, unspecified; I25.10 Atherosclerotic heart disease of native coronary artery without angina pectoris; Z95.5 Presence of coronary angioplasty implant and graft; K21.9 Gastro-esophageal reflux disease without esophagitis; N40.0 Benign prostatic hyperplasia without lower urinary tract symptoms; Z98.890 Other specified postprocedural states
CPT/HCPCS: 36415; 71046-TC-FY; 74177-TC; 80053; 81003; 82550; 84484; 85025; 93005; 93010; 99284-25

== ENCOUNTER 2019-08-28 12:34 | Emergency (ER) | payer OTHER ==
--- NOTE | 2019-08-28 12:38 | PDOC ---
Rapid Medical Evaluation Time Seen by Provider: 08/28/19 12:35 Medical Evaluation: Allergies Allergy/AdvReac Type Severity Reaction Status Date / Time Sulfa (Sulfonamide Allergy Intermediate Rash Verified 08/28/19 12:35 Antibiotics) [Sulfa(Sulfonamide Antibiotics)] ciprofloxacin [From Cipro] Allergy ITCHING Verified 08/28/19 12:35 RASH ciprofloxacin HCl Allergy ITCHING Verified 08/28/19 12:35 [From Cipro] RASH 08/28/19 12:35 CC: head hit by a metal part while at work, noloc, on no anticoagulant Exam: vss, small hematoma over left eyebrow, Plan: ft Discharge Disposition - Diagnosis Head injury - Referrals - Patient Instructions - Post Discharge Activity
[2019-08-28 12:40] VITALS: BP 152/71; PULSE 62; TEMP 97.9; BMI 28.1
--- NOTE | 2019-08-28 12:56 | PDOC ---
History of Present Illness - General Chief Complaint: Injury Stated Complaint: HEAD INJURY Time Seen by Provider: 08/28/19 12:35 History Source: Patient - History of Present Illness Occurred: reports: this afternoon Pain Location: reports: face Method of Injury: Yes: direct blow Past History - Medical History Allergies/Adverse Reactions: Allergies Allergy/AdvReac Type Severity Reaction Status Date / Time Sulfa (Sulfonamide Allergy Intermediate Rash Verified 08/28/19 12:35 Antibiotics) [Sulfa(Sulfonamide Antibiotics)] ciprofloxacin [From Cipro] Allergy ITCHING Verified 08/28/19 12:35 RASH ciprofloxacin HCl Allergy ITCHING Verified 08/28/19 12:35 [From Cipro] RASH Home Medications: Ambulatory Orders Aspirin Coated [Ecotrin -] 81 mg PO DAILY 12/05/12 Amlodipine Besylate 10 mg PO HS 10/18/16 Bromfenac Sodium [Prolensa] 3 ml OU DAILY 10/20/17 Finasteride [Proscar -] 5 mg PO HS 10/20/17 Omeprazole 40 mg PO PRN 10/20/17 Atorvastatin Ca [Lipitor] 20 mg PO HS 12/29/17 Metoprolol Succinate 100 mg PO DAILY 12/29/17 Acetaminophen [Tylenol] 325 mg PO QID #30 capsule 12/30/17 Montara-3/Dha/Epa/Fish Oil [Montara 3 500 Softgel] 1 each PO DAILY 12/30/17 Oxycodone HCl/Acetaminophen [Percocet 5-325 mg Tablet] 1 tab PO Q6H #20 tablet MDD 3 12/30/17 Anemia: No Asthma: No Cancer: No Cardiac Disorders: Yes (4 STENTS 2008) CVA: No COPD: No CHF: No DVT: No Dementia: No Diabetes: No GI Disorders: No Disorders: Yes (BPH) HTN: Yes Hypercholesterolemia: Yes Liver Disease: No Seizures: No Thyroid Disease: No - Surgical History Abdominal Surgery: Yes (HERNIA) Appendectomy: Yes (AT 11 YRS OLD) Cardiac Surgery: Yes (STENTS X4) Cholecystectomy: No Lung Surgery: No Neurologic Surgery: No Orthopedic Surgery: Yes (RT FIBULA FX 1994) - Immunization History Immunization Up to Date: Yes - Psycho-Social/Smoking History Smoking Status: No Smoking History: Never smoked Have you smoked in the past 12 months: No Number of Cigarettes Smoked Daily: 0 - Substance Abuse Hx (Audit-C & DAST Scrn) How often the patient has a drink containing alcohol: Never Score: In Men: 4 or > Positive; In Women: 3 or > Positive: 0 Screen Result (Pos requires Nsg. Audit-10AR): Negative In the last yr the pt used illegal drug/Rx for NonMed reason: No Score: Yes response is considered Positive: 0 Screen Result (Positive result requires Nsg. DAST-10): Negative Review of Systems - Review of Systems ABD/GI: No: Nausea, Vomiting Musculoskeletal: No: Back Pain, Joint Pain, Neck Pain Neurological: No: Headache, Dizziness *Physical Exam - Vital Signs Last Vital Signs Temp Pulse Resp BP Pulse Ox 97.9 F 62 18 152/71 100 08/28/19 12:36 08/28/19 12:36 08/28/19 12:36 08/28/19 12:36 08/28/19 12:36 - Physical Exam General Appearance: Yes: Appropriately Dressed. No: Apparent Distress HEENT: positive: Normal Voice Neck: positive: Supple Respiratory/Chest: negative: Respiratory Distress Extremity: positive: Other (~1cm contusion to L brow) Integumentary: positive: Dry, Warm Neurologic: positive: Fully Oriented, Alert, Normal Mood/Affect, Motor Strength 5/5 Medical Decision Making - Medical Decision Making 08/28/19 13:08 74 yo male, denies any sig pmhx and takes baby asa daily, works at [employer] and bumped head against glass door of [employer] today. No fall, POTTER, dizziness, n/v or LOC. No other injury at this time per pt see exam Facial contusion s/p minor closed head injury No concerning sxs On daily baby asa Pt well shamir and stable w/ exam only remarkable for ~1 cm contusion to L brow Stable for dc to return as needed as d/w pt Discharge - Discharge Information Problems reviewed: Yes Clinical Impression/Diagnosis: Facial contusion Qualifiers: Encounter type: initial encounter Qualified Code(s): S00.83XA - Contusion of other part of head, initial encounter Condition: Good Disposition: HOME - Follow up/Referral - Patient Discharge Instructions Patient Printed Discharge Instructions: Contusion Additional Instructions: Return for any headache, dizziness, nausea or vomiting as discussed - Post Discharge Activity Work/Back to School Note: Back to Work
== END 2019-08-28 13:07 | disposition home or self-care (01) ==
LOC: JERFT 12:34
DX: S00.83XA Contusion of other part of head, initial encounter (principal)
CPT/HCPCS: 99283-25

== ENCOUNTER 2022-02-04 14:47 | Inpatient (IN) | payer OTHER ==
[2022-02-04] MEDS ORDERED: ACETAMINOPHEN 1000 MG/100 ML BAG IVPB ONE (17:40)
[2022-02-04 18:19] LABS: BASO % 0.2 % (0-2.0); HEMATOCRIT 37.2 % (35.4-49); HEMOGLOBIN 12.6 GM/dL (11.7-16.9); LYMPH % 13.1 % (8-40); MCHC 33.8 g/dl (32.0-35.9); MEAN CELL VOLUME 94.4 fl (80-96); MEAN PLT VOLUME 7.7 fl (7.5-11.1); MONO % 17.5 % (3.8-10.2); NEUT % 69.2 % (42.8-82.8); PLATELET COUNT 170 10^3/uL (134-434); RBC 3.93 M/mm3 (4.00-5.60); RDW 13.2 % (11.9-15.9); WHITE BLOOD COUNT 4.5 K/mm3 (4.0-10.0)
[2022-02-04 18:41] LABS: CALCIUM 9.1 mg/dL (8.5-10.1)
[2022-02-04 18:43] LABS: ALBUMIN 4.1 g/dl (3.4-5.0); BLOOD UREA NITROGEN 28.8 mg/dL (7-18); MAGNESIUM 2.1 mg/dL (1.8-2.4)
[2022-02-04 18:46] LABS: BILIRUBIN,TOTAL 0.4 mg/dL (0.2-1); CREATININE 2.1 mg/dL (0.55-1.3); TOT PROT 7.8 g/dl (6.4-8.2)
[2022-02-04 18:50] LABS: N-TERMINAL BNP 431.8 pg/ml (5-450)
[2022-02-04] MEDS ORDERED: AZITHROMYCIN IVPB 500 MG in DEXTROSE 5%-WATER - 250 ML IVPB ONE (18:50)
[2022-02-04] MEDS ORDERED: CEFTRIAXONE 1,000 MG in DEXTROSE 5%-WATER - 50 ML IVPB ONE (18:50)
[2022-02-04] MEDS ORDERED: SODIUM CHLORIDE 0.9% 500 ML INFUS.BAG IV ONE (18:52)
[2022-02-04] MEDS ORDERED: ACETAMINOPHEN INJECTION 100 ML IVPB ONE (19:33)
[2022-02-04] MEDS ORDERED: CEFTRIAXONE 1 GM/50 ML BAG ONE (19:33)
[2022-02-04] MEDS ORDERED: AZITHROMYCIN IVPB 500 MG/250 ML BAG IVPB ONE (19:33)
[2022-02-05] MEDS ORDERED: ACETAMINOPHEN 325 MG TABLET (FP) ONE ×2 (04:53→14:57)
[2022-02-05] MEDS ORDERED: BENZOCAINE/MENTH/CETYLPYRD CL 1 EACH LOZENGE MM ONE (04:54)
[2022-02-05] MEDS: ACETAMINOPHEN 325 MG TABLET (FP) PO PRN ×2 (04:56→16:01)
[2022-02-05 08:47] LABS: BASO % 0.3 % (0-2.0); HEMATOCRIT 36.6 % (35.4-49); HEMOGLOBIN 12.1 GM/dL (11.7-16.9); LYMPH % 10.3 % (8-40); MCH 31.3 pg (25.7-33.7); MCHC 33.1 g/dl (32.0-35.9); MEAN CELL VOLUME 94.6 fl (80-96); MEAN PLT VOLUME 7.4 fl (7.5-11.1); MONO % 11.2 % (3.8-10.2); NEUT % 78.2 % (42.8-82.8); PLATELET COUNT 162 10^3/uL (134-434); RBC 3.87 M/mm3 (4.00-5.60); RDW 13.4 % (11.9-15.9); WHITE BLOOD COUNT 6.2 K/mm3 (4.0-10.0)
[2022-02-05 09:04] LABS: CALCIUM 8.6 mg/dL (8.5-10.1)
[2022-02-05 09:06] LABS: ALBUMIN 3.7 g/dl (3.4-5.0); BLOOD UREA NITROGEN 26.7 mg/dL (7-18)
[2022-02-05 09:08] LABS: CREATININE 1.8 mg/dL (0.55-1.3)
[2022-02-05 09:10] LABS: BILIRUBIN,TOTAL 0.4 mg/dL (0.2-1); TOT PROT 7.3 g/dl (6.4-8.2)
[2022-02-05] MEDS: ASPIRIN 81 MG CHEWABLE TABLETS PO SCH (12:00)
[2022-02-05] MEDS: CEFTRIAXONE 1 GM in DEXTROSE 5%-WATER - 50 ML IVPB SCH (12:00)
[2022-02-05] MEDS: ENOXAPARIN NA (PORCINE) 30 MG/0.3 ML DISP.SYRIN SQ SCH (16:04)
[2022-02-05] MEDS: AZITHROMYCIN IVPB 500 MG in DEXTROSE 5%-WATER - 250 ML IVPB SCH (16:04)
[2022-02-05] MEDS ORDERED: cefTRIAXone SODIUM 1 GM VIAL ONE (16:09)
[2022-02-05] MEDS ORDERED: ENOXAPARIN NA (PORCINE) 30 MG/0.3 ML DISP.SYRIN SQ ONE (16:10)
[2022-02-05 16:11] LABS: EPI CELLS 9 /uL (0-25.1); HYALINE CASTS 2 /uL (0-3.1); URINE APPEARANCE CLEAR; URINE BACTERIA 9 /uL (0-1359); URINE BILIRUBIN NEGATIVE (NEGATIVE); URINE COLOR YELLOW; URINE GLUCOSE (UA) NEGATIVE (NEGATIVE); URINE KETONE TRACE (NEGATIVE); URINE LEUK ESTERASE NEGATIVE (NEGATIVE); URINE NITRITE NEGATIVE (NEGATIVE); URINE PROTEIN 2+ (NEGATIVE); URINE RBC 9 /uL (0-23.9); URINE UROBILINOGEN 0.2 mg/dL (0.2-1.0); URINE WBC 20 /uL (0-25.8)
[2022-02-05] MEDS ORDERED: SODIUM CHLORIDE 0.45% 1,000 ML IV SCH (16:45)
[2022-02-05] MEDS ORDERED: ATORVASTATIN CA 20 MG TABLET (FP) ONE (22:25)
[2022-02-05] MEDS: FINASTERIDE 5 MG TABLET (FP) PO SCH (22:30)
[2022-02-05] MEDS: ATORVASTATIN CA 20 MG TABLET (FP) PO SCH (22:31)
[2022-02-06 08:02] LABS: BASO % 0.2 % (0-2.0); EOS % 0.1 % (0-4.5); HEMATOCRIT 35.6 % (35.4-49); HEMOGLOBIN 11.8 GM/dL (11.7-16.9); LYMPH % 20.4 % (8-40); MCH 31.3 pg (25.7-33.7); MCHC 33.3 g/dl (32.0-35.9); MEAN CELL VOLUME 94.3 fl (80-96); MEAN PLT VOLUME 7.8 fl (7.5-11.1); MONO % 12.9 % (3.8-10.2); NEUT % 66.4 % (42.8-82.8); PLATELET COUNT 161 10^3/uL (134-434); RBC 3.78 M/mm3 (4.00-5.60); RDW 13.2 % (11.9-15.9); WHITE BLOOD COUNT 6.1 K/mm3 (4.0-10.0)
[2022-02-06 10:03] LABS: ALBUMIN 3.5 g/dl (3.4-5.0); BLOOD UREA NITROGEN 27.8 mg/dL (7-18); CALCIUM 8.7 mg/dL (8.5-10.1)
[2022-02-06 10:06] LABS: CREATININE 1.7 mg/dL (0.55-1.3)
[2022-02-06 10:09] LABS: BILIRUBIN,TOTAL 0.9 mg/dL (0.2-1)
[2022-02-06] MEDS ORDERED: ENOXAPARIN NA (PORCINE) 30 MG/0.3 ML DISP.SYRIN SQ ONE (10:49)
[2022-02-06] MEDS ORDERED: ASPIRIN 81 MG CHEWABLE TABLETS ONE (10:49)
[2022-02-06] MEDS ORDERED: CEFTRIAXONE 1 GM/50 ML BAG ONE (10:50)
[2022-02-06] MEDS: CEFTRIAXONE 1 GM in DEXTROSE 5%-WATER - 50 ML IVPB SCH (10:58)
[2022-02-06] MEDS: ENOXAPARIN NA (PORCINE) 30 MG/0.3 ML DISP.SYRIN SQ SCH (10:58)
[2022-02-06] MEDS: ASPIRIN 81 MG CHEWABLE TABLETS PO SCH (10:58)
[2022-02-06] MEDS ORDERED: AZITHROMYCIN IVPB 500 MG/250 ML BAG IVPB ONE (11:58)
[2022-02-06] MEDS: AZITHROMYCIN IVPB 500 MG in DEXTROSE 5%-WATER - 250 ML IVPB SCH (12:00)
[2022-02-06] MEDS ORDERED: REMDESIVIR 200 MG in SODIUM CHLORIDE 250 ML IVPB ONE (14:00)
[2022-02-06] MEDS ORDERED: SODIUM CHLORIDE 0.45% 1,000 ML IV SCH (14:30)
[2022-02-06] MEDS ORDERED: ATORVASTATIN CA 20 MG TABLET (FP) ONE (21:57)
[2022-02-06] MEDS: ATORVASTATIN CA 20 MG TABLET (FP) PO SCH (22:00)
[2022-02-06] MEDS: FINASTERIDE 5 MG TABLET (FP) PO SCH (22:04)
[2022-02-07] MEDS ORDERED: guaiFENesin/D-METHORPHAN HB 10 ML UNIT-DOSE CUPS PO PRN (06:04)
[2022-02-07] MEDS: CEFTRIAXONE 1 GM in DEXTROSE 5%-WATER - 50 ML IVPB SCH (09:13)
[2022-02-07] MEDS: ENOXAPARIN NA (PORCINE) 30 MG/0.3 ML DISP.SYRIN SQ SCH (09:13)
[2022-02-07] MEDS: ASPIRIN 81 MG CHEWABLE TABLETS PO SCH (09:14)
[2022-02-07] MEDS: AZITHROMYCIN IVPB 500 MG/250 ML BAG IVPB SCH (10:28)
[2022-02-07 11:00] LABS: ALBUMIN 3.1 g/dl (3.4-5.0); CALCIUM 8.6 mg/dL (8.5-10.1)
[2022-02-07 11:01] LABS: BLOOD UREA NITROGEN 23.8 mg/dL (7-18)
[2022-02-07 11:04] LABS: CREATININE 1.3 mg/dL (0.55-1.3)
[2022-02-07 11:05] LABS: BILIRUBIN,TOTAL 0.4 mg/dL (0.2-1); TOT PROT 6.2 g/dl (6.4-8.2)
[2022-02-07] MEDS ORDERED: SODIUM CHLORIDE 0.45% 1,000 ML IV SCH (11:36)
[2022-02-07] MEDS: REMDESIVIR 100 MG in SODIUM CHLORIDE 250 ML IVPB SCH (13:32)
[2022-02-07 13:42] VITALS: BMI 29.3
[2022-02-07] MEDS: FINASTERIDE 5 MG TABLET (FP) PO SCH (17:18)
[2022-02-07] MEDS: ATORVASTATIN CA 20 MG TABLET (FP) PO SCH (21:41)
[2022-02-08 09:22] LABS: ALBUMIN 3.1 g/dl (3.4-5.0); BLOOD UREA NITROGEN 22.6 mg/dL (7-18); CALCIUM 8.6 mg/dL (8.5-10.1)
[2022-02-08 09:25] LABS: CREATININE 1.3 mg/dL (0.55-1.3)
[2022-02-08 09:28] LABS: BILIRUBIN,TOTAL 0.7 mg/dL (0.2-1)
[2022-02-08] MEDS: ASPIRIN 81 MG CHEWABLE TABLETS PO SCH (10:53)
[2022-02-08] MEDS: CEFTRIAXONE 1 GM in DEXTROSE 5%-WATER - 50 ML IVPB SCH (10:53)
[2022-02-08] MEDS: ENOXAPARIN NA (PORCINE) 30 MG/0.3 ML DISP.SYRIN SQ SCH (10:53)
[2022-02-08] MEDS: REMDESIVIR 100 MG in SODIUM CHLORIDE 250 ML IVPB SCH (10:56)
[2022-02-08] MEDS: AZITHROMYCIN IVPB 500 MG/250 ML BAG IVPB SCH (11:05)
[2022-02-08] MEDS: LACTOBACILLUS ACIDOPHILUS 1 TABLET PO SCH (13:00)
[2022-02-08] MEDS: FINASTERIDE 5 MG TABLET (FP) PO SCH (17:03)
[2022-02-08] MEDS: ATORVASTATIN CA 20 MG TABLET (FP) PO SCH (21:13)
[2022-02-08 22:03] VITALS: RESP 18
[2022-02-09] MEDS: ASPIRIN 81 MG CHEWABLE TABLETS PO SCH (10:39)
[2022-02-09] MEDS: LACTOBACILLUS ACIDOPHILUS 1 TABLET PO SCH (10:39)
[2022-02-09] MEDS: ENOXAPARIN NA (PORCINE) 30 MG/0.3 ML DISP.SYRIN SQ SCH (10:39)
[2022-02-09 14:19] VITALS: BP 150/68; PULSE 52; TEMP 98.7
[2022-02-09] MEDS: FINASTERIDE 5 MG TABLET (FP) PO SCH (17:18)
== END 2022-02-09 19:40 | disposition home or self-care (01) | DRG 177 ==
LOC: JER 14:47 → JERBED 18:53 → OBSVTOIN 21:55 → J4S 02-06 22:28
PROVIDERS: ADMIT Internal Medicine; ATTEND Internal Medicine
PROC: XW033E5 Introduction of Remdesivir Anti-infective into Peripheral Vein, Percutaneous Approach, New Technology Group 5 (ICD-10-PCS; principal; 2022-02-06)
DX: U07.1 COVID-19 (principal); J12.82 Pneumonia due to coronavirus disease 2019; N17.9 Acute kidney failure, unspecified; I25.10 Atherosclerotic heart disease of native coronary artery without angina pectoris; I10 Essential (primary) hypertension; K21.9 Gastro-esophageal reflux disease without esophagitis; E78.5 Hyperlipidemia, unspecified; N40.0 Benign prostatic hyperplasia without lower urinary tract symptoms; I44.7 Left bundle-branch block, unspecified; R19.7 Diarrhea, unspecified; Z95.5 Presence of coronary angioplasty implant and graft
CPT/HCPCS: 0241U-QW; 36415; 71046-TC-FY; 76775-TC; 80053; 80061; 81003; 82550; 83735; 83880; 84484; 85025; 86140; 87040; 87070; 87086; 87205; 87899; 93005; 93010; 99285-25; C9399; G0378

== ENCOUNTER 2023-08-02 09:44 | Observation (INO) | payer OTHER ==
[2023-08-02] MEDS ORDERED: ACETAMINOPHEN INJECTION 100 ML IVPB ONE (10:46)
[2023-08-02] MEDS: ACETAMINOPHEN 1000 MG/100 ML BAG IVPB ONE (11:09)
[2023-08-02 11:15] LABS: BASO % 0.4 % (0-2.0); EOS % 1.1 % (0-4.5); HEMATOCRIT 35.7 % (35.4-49); HEMOGLOBIN 12.5 GM/dL (11.7-16.9); LYMPH % 14.4 % (8-40); MCH 32.5 pg (25.7-33.7); MCHC 35.1 g/dl (32.0-35.9); MEAN CELL VOLUME 92.5 fl (80-96); MEAN PLT VOLUME 7.4 fl (7.5-11.1); MONO % 6.2 % (3.8-10.2); NEUT % 77.9 % (42.8-82.8); PLATELET COUNT 201 10^3/uL (134-434); RBC 3.86 M/mm3 (4.00-5.60); RDW 13.2 % (11.9-15.9); WHITE BLOOD COUNT 5.3 K/mm3 (4.0-10.0)
[2023-08-02 11:20] LABS: INR 0.97 (0.83-1.09); PROTHROMBIN TIME (PATIENT) 11.2 SEC (9.7-13.0)
[2023-08-02 11:41] LABS: POTASSIUM 4.2 mmol/L (3.5-5.1)
[2023-08-02 11:43] LABS: CALCIUM 9.2 mg/dL (8.5-10.1)
[2023-08-02 11:44] LABS: ALBUMIN 3.7 g/dl (3.4-5.0); BLOOD UREA NITROGEN 18.6 mg/dL (7-18); MAGNESIUM 2.3 mg/dL (1.8-2.4)
[2023-08-02 11:47] LABS: CREATININE 1.3 mg/dL (0.55-1.3)
[2023-08-02 11:49] LABS: BILIRUBIN,TOTAL 0.8 mg/dL (0.2-1)
[2023-08-02 11:54] LABS: N-TERMINAL BNP 97.7 pg/ml (5-450)
[2023-08-02 17:19] LABS: URINE APPEARANCE CLEAR; URINE BILIRUBIN NEGATIVE (NEGATIVE); URINE COLOR YELLOW; URINE GLUCOSE (UA) NEGATIVE (NEGATIVE); URINE KETONE NEGATIVE (NEGATIVE); URINE LEUK ESTERASE NEGATIVE (NEGATIVE); URINE NITRITE NEGATIVE (NEGATIVE); URINE PROTEIN NEGATIVE (NEGATIVE); URINE UROBILINOGEN 0.2 mg/dL (0.2-1.0)
[2023-08-02 17:43] LABS: EPI CELLS 1.1 /uL (0-25.1); HYALINE CASTS 0.14 /uL (0-3.1); URINE RBC 15.7 /uL (0-23.9); URINE WBC 0.2 /uL (0-25.8)
[2023-08-02] MEDS ORDERED: ATORVASTATIN CA 20 MG TABLET (FP) ONE (22:18)
[2023-08-02] MEDS ORDERED: PANTOPRAZOLE 40 MG TABLET PO ONE (22:18)
[2023-08-02] MEDS: PANTOPRAZOLE 40 MG TABLET PO SCH (22:23)
[2023-08-02] MEDS: ATORVASTATIN CA 20 MG TABLET (FP) PO SCH (22:23)
[2023-08-02] MEDS: FINASTERIDE 5 MG TABLET (FP) PO SCH (22:33)
[2023-08-03 00:31] VITALS: RESP 18
[2023-08-03 04:52] VITALS: BMI 24.9
[2023-08-03] MEDS: ASPIRIN COATED 81 MG TABLET.EC PO SCH (10:36)
[2023-08-03] MEDS: VALSARTAN 160 MG TABLET PO SCH (10:37)
[2023-08-03 14:33] VITALS: TEMP 98
[2023-08-03 19:15] VITALS: BP 153/76; PULSE 108
== END 2023-08-03 17:10 | disposition home or self-care (01) ==
LOC: JER 09:44 → JERBED 13:46 → J4S 08-03 04:15
PROVIDERS: ADMIT Internal Medicine; ATTEND Internal Medicine
PROC: 3E033NZ Introduction of Analgesics, Hypnotics, Sedatives into Peripheral Vein, Percutaneous Approach (ICD-10-PCS; principal; 2023-08-02)
DX: R55 Syncope and collapse (principal); M79.604 Pain in right leg; W18.39XA Other fall on same level, initial encounter; Y93.89 Activity, other specified; Y92.002 Bathroom of unspecified non-institutional (private) residence as the place of occurrence of the external cause; K21.9 Gastro-esophageal reflux disease without esophagitis; N40.0 Benign prostatic hyperplasia without lower urinary tract symptoms; I10 Essential (primary) hypertension; E78.5 Hyperlipidemia, unspecified; R42 Dizziness and giddiness; R26.2 Difficulty in walking, not elsewhere classified; I25.10 Atherosclerotic heart disease of native coronary artery without angina pectoris; Z90.49 Acquired absence of other specified parts of digestive tract; Z88.2 Allergy status to sulfonamides; Z88.8 Allergy status to other drugs, medicaments and biological substances
CPT/HCPCS: 36415; 70450-TC; 71045-TC-FY; 72125-TC; 72170-TC-FY; 80053; 81003; 82962; 83735; 83880; 84439; 84443; 84484; 85025; 85610; 86850; 86900; 86901; 87086; 93005; 93010; 93306-TC; 93880-TC; 96372; 99285-25; G0378; J0131